=== PATIENT | female | born 1995 | race Caucasian/White ===

== ENCOUNTER 2018-06-30 13:58 | Emergency (ER) | payer OTHER ==
[2018-06-30] MEDS ORDERED: fentaNYL 100 MCG/2 ML INJ ONE (15:07)
[2018-06-30] MEDS ORDERED: ONDANSETRON 4 MG/2 ML VIAL ONE (15:07)
[2018-06-30 20:06] LABS: PLATELET COUNT 322 10^3/uL (150-400)
[2018-06-30 21:32] VITALS: BP 118/65
--- NOTE | 2018-06-30 23:25 | EDPHY ---
H & P Time Seen by Provider: 06/30/18 14:55 HPI/ROS: CHIEF COMPLAINT: Abdominal pain, nausea, vomiting HISTORY OF PRESENT ILLNESS: 23-year-old female who is on oral typhoid vaccination, and took her 3rd dose today around 6:00 a.m.. Patient reported about 8:00 a.m. in the morning, she developed lower abdominal discomfort and started vomiting about noon. No diarrhea. Patient states that after her 2nd dose of oral typhoid she did have a little bit of mild abdominal upset. No fever. No vomiting. No other ill contacts. No fever. No fever, chills, chest pain, shortness of breath, palpitations, diarrhea, urinary complaints, headache, lightheadedness. REVIEW OF SYSTEMS: A comprehensive 10 system review of systems was reviewed and is otherwise negative aside from elements mentioned in the history of present illness and medical decision making. PAST MEDICAL HISTORY: Negative. Not immunocompromised. On no prednisone. SOCIAL HISTORY: Nonsmoker. VITAL SIGNS Reviewed by me. GENERAL: Tearful, reporting generalized abdominal pain. HEENT: Atraumatic. Eyes: No icterus, no injection. Mouth: moist mucous membranes. No erythema or lesions. Neck: supple with no adenopathy. LUNGS: Clear to auscultation bilaterally, no wheezes, rhonchi or rales. CARDIAC: Regular rate and rhythm, no rubs, murmurs or gallops. ABDOMEN: Soft, mild diffuse tenderness with no rebound or guarding. BACK: No CVA tenderness. EXTREMITIES: No trauma. No edema. Range of motion is normal throughout. NEURO: Alert and oriented, grossly nonfocal. SKIN: Warm and dry, no rash. PSYCHIATRIC: Normal mentation, no agitation. Smoking Status: Never smoked Constitutional: Initial Vital Signs Temperature (C) 36.7 C 06/30/18 14:25 Heart Rate 98 06/30/18 14:25 Respiratory Rate 16 06/30/18 14:25 Blood Pressure 125/81 H 06/30/18 14:25 O2 Sat (%) 97 06/30/18 14:25 O2 Delivery Mode Room Air Allergies/Adverse Reactions: cephalexin monohydrate [From Keflex] Allergy (Verified 02/27/15 19:24) Penicillins Allergy (Verified 02/27/15 19:24) Home Medications: Medication Instructions Recorded Azithromycin [Zithromax] 250 mg PO DAILY #6 tab 02/27/15 Medical Decision Making ED Course/Re-evaluation: IV was placed. Patient received a L normal saline as well as 4 mg of Zofran, 50 mcg fentanyl. Labs demonstrate a white count of 14.8, largely unremarkable electrolytes with a BUN and creatinine of 15 and 0.7. Patient was reexamined after her IV fluids in her Zofran. She reports feeling significantly improved. I discussed the situation with Dr. Aniya Rendon from infectious disease. Patient should be encouraged to take her last dose of oral typoid vaccine. Zofran to use if needed for ongoing or recurrent nausea or vomiting. Discussed recommendations with the patient. She is aware that she probably has some level of protection after taking 3 doses of the oral vaccination. She is also aware that there is no clear contraindication to taking her 4th dose and I would encourage her to do so if possible. Differential Diagnosis: Differential diagnosis of the patient's nausea and vomiting was considered including but not limited to gastroenteritis, gastritis, alcohol intoxication, withdrawal symptoms, known side effect of oral typhoid vaccination, intraabdominal processes including appendicitis. - Data Points Laboratory Results: Laboratory Results 06/30/18 13:58 06/30/18 13:58 06/30/18 06/30/18 06/30/18 13:58 13:58 13:58 WBC 14.87 10^3/uL H 10^3/uL (3.80-9.50) RBC 4.98 10^6/uL 10^6/uL (4.18-5.33) Hgb 14.4 g/dL g/dL (12.6-16.3) Hct 43.7 % % (38.0-47.0) MCV 87.8 fL fL (81.5-99.8) MCH 28.9 pg pg (27.9-34.1) MCHC 33.0 g/dL g/dL (32.4-36.7) RDW 13.2 % % (11.5-15.2) Plt Count 322 10^3/uL 10^3/uL (150-400) MPV 8.8 fL fL (8.7-11.7) Neut % (Auto) 85.6 % H % (39.3-74.2) Lymph % (Auto) 5.9 % L % (15.0-45.0) Sierra % (Auto) 7.3 % % (4.5-13.0) Eos % (Auto) 0.7 % % (0.6-7.6) Baso % (Auto) 0.2 % L % (0.3-1.7) Nucleat RBC Rel Count 0.0 % % (0.0-0.2) Absolute Neuts (auto) 12.74 10^3/uL H 10^3/uL (1.70-6.50) Absolute Lymphs (auto) 0.87 10^3/uL L 10^3/uL (1.00-3.00) Absolute Monos (auto) 1.08 10^3/uL H 10^3/uL (0.30-0.80) Absolute Eos (auto) 0.10 10^3/uL 10^3/uL (0.03-0.40) Absolute Basos (auto) 0.03 10^3/uL 10^3/uL (0.02-0.10) Absolute Nucleated RBC 0.00 10^3/uL 10^3/uL (0-0.01) Immature Gran % 0.3 % % (0.0-1.1) Immature Gran # 0.05 10^3/uL 10^3/uL (0.00-0.10) Sodium 139 mEq/L mEq/L (135-145) Potassium 4.1 mEq/L mEq/L (3.5-5.2) Chloride 108 mEq/L mEq/L (97-110) Carbon Dioxide 22 mEq/l mEq/l (22-31) Anion Gap 9 mEq/L mEq/L (6-14) BUN 15 mg/dL mg/dL (7-23) Creatinine 0.7 mg/dL mg/dL (0.6-1.0) Estimated GFR Not Reported Glucose 83 mg/dL mg/dL (70-100) Calcium 9.0 mg/dL mg/dL (8.5-10.4) Total Bilirubin 0.5 mg/dL mg/dL (0.1-1.4) Conjugated Bilirubin 0.3 mg/dL mg/dL (0.0-0.5) Unconjugated Bilirubin 0.2 mg/dL mg/dL (0.0-1.1) AST 24 IU/L IU/L (14-46) ALT 27 IU/L IU/L (9-52) Alkaline Phosphatase 59 IU/L IU/L (38-126) Total Protein 6.9 g/dL g/dL (6.3-8.2) Albumin 4.0 g/dL g/dL (3.5-5.0) Beta HCG, Qual NEGATIVE Departure - Departure Disposition: Home, Routine, Self-Care Clinical Impression: Side effect of oral typhoid vaccination Vomiting Qualifiers: Vomiting type: unspecified Vomiting Intractability: non-intractable Nausea presence: with nausea Qualified Code(s): R11.2 - Nausea with vomiting, unspecified Condition: Good Instructions: Acute Nausea and Vomiting (ED), Typhoid Vaccine, Live (By mouth) Additional Instructions: Okay to use Zofran if needed for nausea vomiting. It is okay to take your 4th dose of oral typhoid vaccination. Referrals: NONE *PRIMARY CARE P,. [Primary Care Provider] - As per Instructions
== END 2018-06-30 16:36 | disposition home or self-care (01) ==
DX: T88.1XXA Other complications following immunization, not elsewhere classified, initial encounter (principal); R11.2 Nausea with vomiting, unspecified
CPT/HCPCS: 96374; J2405; J3010

== ENCOUNTER 2018-07-16 21:48 | Emergency (ER) | payer OTHER ==
[2018-07-16] MEDS ORDERED: ONDANSETRON 4 MG/2 ML VIAL IVP ONE (22:03)
[2018-07-16] MEDS ORDERED: NS 1,000 ML IV ONE (22:03)
[2018-07-16] MEDS ORDERED: KETOROLAC 15 MG/1 ML SDV IVP ONE (22:09)
--- NOTE | 2018-07-16 22:11 | EDPHY ---
H & P Stated Complaint: abd pain, nause, vomiitng, diarrhea, body aches Time Seen by Provider: 07/16/18 22:02 HPI/ROS: HPI The patient presents with nausea, vomiting, diarrhea, abdominal pain which has been present for the last 24 hr. She returned yesterday for 5 days in [place] in the city. She developed which she describes as indigestion last night with epigastric cramping abdominal pain. This morning then she developed nausea, vomiting 1 episode and several episodes of watery diarrhea without any blood. She has not had a fever. She reports diffuse abdominal cramping and myalgias throughout her legs. She denies any sick contacts.. REVIEW OF SYSTEMS 10 systems were reviewed and negative with the exception of the elements mentioned in the history of present illness. PMHx: Healthy Soc Hx: College student PHYSICAL General Appearance: Alert, no distress Eyes: Pupils equal and round no pallor or injection ENT, Mouth: Mucous membranes moist Respiratory: There are no retractions, lungs are clear to auscultation Cardiovascular: Tachycardic rate, regular rhythm Gastrointestinal: Abdomen is soft and non-tender, no masses, bowel sounds normal Neurological: A&O, moves all extremities Skin: Warm and dry, no rashes Musculoskeletal: Neck is supple non tender Extremities: symmetrical, full range of motion Psychiatric: Patient is oriented X 3, there is no agitation Source: Patient Exam Limitations: No limitations - Personal History LMP (Females 10-55): 15-21 Days Ago Current Tetanus Diphtheria and Acellular Pertussis (TDAP): Yes Tetanus Vaccine Date: 2007 - Medical/Surgical History Hx Asthma: No Hx Chronic Respiratory Disease: No Hx Diabetes: No Hx Cardiac Disease: No Hx Renal Disease: No Hx Cirrhosis: No Hx Alcoholism: No Hx HIV/AIDS: No Hx Splenectomy or Spleen Trauma: No Other PMH: psh: wisdom teeth;. PMH: denies - Social History Smoking Status: Never smoked Constitutional: Initial Vital Signs Temperature (C) 37.1 C 07/16/18 21:51 Heart Rate 122 H 07/16/18 21:51 Respiratory Rate 16 07/16/18 21:51 O2 Sat (%) 97 07/16/18 21:51 O2 Delivery Mode Room Air Allergies/Adverse Reactions: cephalexin monohydrate [From Keflex] Allergy (Verified 02/27/15 19:24) Penicillins Allergy (Verified 02/27/15 19:24) Home Medications: Medication Instructions Recorded Control 07/16/18 Medical Decision Making Differential Diagnosis: 23-year-old female, return travel or from [place] presents with nausea, vomiting , his abdominal pain, diarrhea, myalgias, subjective chills. Here, she is tachycardic, appears mildly dehydrated, abdominal exam is benign. Suspect traveler's diarrhea, would also consider influenza or colitis. In the emergency department, patient received IV fluids, Toradol, Zofran. Basic labs were checked. These were unremarkable, sodium slightly low. Influenza testing negative. Ultimately, I do believe she has an infectious diarrhea given mild leukocytosis with left shift. I will give her Zofran 0 DT for home and have encouraged her to take loperamide as needed. We have discussed return precautions. - Data Points Laboratory Results: Laboratory Results 07/16/18 22:10 07/16/18 22:10 07/16/18 07/16/18 07/16/18 22:15 22:10 22:10 WBC 8.82 10^3/uL 10^3/uL (3.80-9.50) RBC 4.61 10^6/uL 10^6/uL (4.18-5.33) Hgb 13.2 g/dL g/dL (12.6-16.3) Hct 39.6 % % (38.0-47.0) MCV 85.9 fL fL (81.5-99.8) MCH 28.6 pg pg (27.9-34.1) MCHC 33.3 g/dL g/dL (32.4-36.7) RDW 13.3 % % (11.5-15.2) Plt Count 294 10^3/uL 10^3/uL (150-400) MPV 8.7 fL fL (8.7-11.7) Neut % (Auto) 93.5 % H % (39.3-74.2) Lymph % (Auto) 2.6 % L % (15.0-45.0) Dane % (Auto) 2.7 % L % (4.5-13.0) Eos % (Auto) 0.7 % % (0.6-7.6) Baso % (Auto) 0.2 % L % (0.3-1.7) Nucleat RBC Rel Count 0.0 % % (0.0-0.2) Absolute Neuts (auto) 8.25 10^3/uL H 10^3/uL (1.70-6.50) Absolute Lymphs (auto) 0.23 10^3/uL L 10^3/uL (1.00-3.00) Absolute Monos (auto) 0.24 10^3/uL L 10^3/uL (0.30-0.80) Absolute Eos (auto) 0.06 10^3/uL 10^3/uL (0.03-0.40) Absolute Basos (auto) 0.02 10^3/uL 10^3/uL (0.02-0.10) Absolute Nucleated RBC 0.00 10^3/uL 10^3/uL (0-0.01) Immature Gran % 0.3 % % (0.0-1.1) Immature Gran # 0.03 10^3/uL 10^3/uL (0.00-0.10) RBC/WBC/PLT Morphology TNP Platelet Estimate TNP Sodium 133 mEq/L L mEq/L (135-145) Potassium 3.6 mEq/L mEq/L (3.5-5.2) Chloride 104 mEq/L mEq/L (97-110) Carbon Dioxide 17 mEq/l L mEq/l (22-31) Anion Gap 12 mEq/L mEq/L (6-14) BUN 12 mg/dL mg/dL (7-23) Creatinine 0.8 mg/dL mg/dL (0.6-1.0) Estimated GFR > 60 Glucose 88 mg/dL mg/dL (70-100) Calcium 9.2 mg/dL mg/dL (8.5-10.4) Total Bilirubin 0.8 mg/dL mg/dL (0.1-1.4) Conjugated Bilirubin 0.4 mg/dL mg/dL (0.0-0.5) Unconjugated Bilirubin 0.4 mg/dL mg/dL (0.0-1.1) AST 30 IU/L IU/L (14-46) ALT 28 IU/L IU/L (9-52) Alkaline Phosphatase 70 IU/L IU/L (38-126) Total Protein 6.9 g/dL g/dL (6.3-8.2) Albumin 4.0 g/dL g/dL (3.5-5.0) Nasal Influenza A PCR NEGATIVE FOR FLU A (NEGATIVE) Nasal Influenza B PCR NEGATIVE FOR FLU B (NEGATIVE) RSV (PCR) NEGATIVE FOR RSV (NEGATIVE) Medications Given: Discontinued Medications Sodium Chloride (Ns) 1,000 mls @ 0 mls/hr IV EDNOW ONE; Wide Open PRN Reason: Protocol Stop: 07/16/18 22:04 Last Admin: 07/16/18 22:14 Dose: 1,000 mls Ketorolac Tromethamine (Toradol) 15 mg IVP EDNOW ONE Stop: 07/16/18 22:10 Last Admin: 07/16/18 22:15 Dose: 15 mg Ondansetron HCl (Zofran) 4 mg IVP EDNOW ONE Stop: 07/16/18 22:04 Last Admin: 07/16/18 22:14 Dose: 4 mg Departure - Departure Disposition: Home, Routine, Self-Care Clinical Impression: Nausea vomiting and diarrhea, Tachycardia Condition: Good Instructions: Traveler's Diarrhea (ED), Nutrition Tips for Relief of Diarrhea ( ED) Additional Instructions: Please return to the emergency department if your worse in any way. I recommend that you take loperamide which is available [id number] to help with your diarrhea. Referrals: Maria T Li MD [Medical Doctor] - As per Instructions
[2018-07-16 22:18] LABS: PLATELET COUNT 294 10^3/uL (150-400)
[2018-07-16] MEDS ORDERED: ONDANSETRON 4MG PREPACK#2 BTL TAKEHOME ONE (23:15)
[2018-07-16] MEDS ORDERED: ACETAMINOPHEN 500 MG TAB PO ONE (23:23)
[2018-07-16] MEDS ORDERED: DICYCLOMINE 10 MG CAP PO ONE (23:23)
[2018-07-16 23:55] VITALS: BP 100/49
== END 2018-07-17 | disposition home or self-care (01) ==
DX: R11.2 Nausea with vomiting, unspecified (principal); R19.7 Diarrhea, unspecified; R00.0 Tachycardia, unspecified; E86.9 Volume depletion, unspecified
CPT/HCPCS: 96374; J1885; J2405